=== PATIENT | male | born 1990 | race Caucasian/White ===

== ENCOUNTER 2016-08-10 15:01 | Emergency (ER) | payer OTHER ==
[~2016-08-10] VITALS: Ht 185.4 cm; Wt 119.8 kg
[2016-08-10 16:46] LABS: ADD MIUA? NO; BILIRUBIN NEGATIVE; BLOOD NEGATIVE; COLOR YELLOW ((YELLOW)); GLUCOSE (STRIP) NEGATIVE; KETONES NEGATIVE; LEUKOCYTES NEGATIVE; NITRITE NEGATIVE; PROTEIN (STRIP) NEGATIVE; SPECIFIC GRAVITY 1.021 (1.000-1.030); UCUL ADDED? NO; UROBILINOGEN 0.2 MG/DL (0.2-1.0)
[2016-08-10] MEDS ORDERED: STRATTERA40 MG PO (18:26)
[2016-08-10] MEDS ORDERED: SEROQUEL XR150 MG PO (18:27)
[2016-08-10] MEDS ORDERED: NEURONTIN300 MG PO (18:27)
[2016-08-10] MEDS ORDERED: SUBOXONE 8 MG-1 EAC2 SL (18:27)
[2016-08-10] MEDS ORDERED: THORAZINE25 MG PO (18:27)
[2016-08-10] MEDS ORDERED: COGENTIN1 MG PO (18:28)
[2016-08-10] MEDS ORDERED: CELEXA20 MG PO (18:28)
[2016-08-10] MEDS ORDERED: VALACYCLOVIR1000 MG PO (19:33)
[2016-08-10] MEDS ORDERED: PEN-VEE K,VEET500 MG PO (19:33)
[2016-08-10 19:59] VITALS: BP 130/74
== END 2016-08-10 20:10 | disposition home or self-care (01) ==
LOC: EME 15:01
DX: A60.01 Herpesviral infection of penis (principal); K08.89 Other specified disorders of teeth and supporting structures; R05 Cough; B19.20 Unspecified viral hepatitis C without hepatic coma; F17.200 Nicotine dependence, unspecified, uncomplicated
CPT/HCPCS: 71020; 81003; 99281; 99284